=== PATIENT | male | born 1955 | race Caucasian/White ===

== ENCOUNTER 2021-09-02 14:42 | Emergency (ER) | payer BC ==
[~2021-09-02] VITALS: Ht 182 cm; Wt 124.0 kg
--- NOTE | 2021-09-02 15:50 | ED Cough/URI ---
General Chief Complaint: COVID19 Suspect/Confirmed Stated Complaint: COUGH,BODY ACHES,CABRERA, SOB Nursing Triage Note: PT CO OF COUGH, BODYACHES, CABRERA DENIES FEVERS, EAR ACHE FOR 2 WEEKS. PT TESTED - FOR COVID 2 WEEKS AGO Source: patient Exam Limitations: no limitations History of Present Illness Date Seen by Provider: Sep 02, 2021 Time Seen by Provider: 15:36 Initial Comments Patient is a 65-year-old male who presents to the emergency room with a chief complaint of cough, congestion, body aches mild headache. Onset of symptoms 2 to 3 weeks ago. Patient states he has been taking multiple gobe-eag-kkxefth medications for relief of symptoms that have been unsuccessful. He was seen 2 weeks ago and tested for COVID, was negative. He states he was COVID vaccinated in July 2021. Denies problems with bladder or bowel, diarrhea, black or bloody stools. No rashes or swelling. Cough is somewhat productive. He is also complaining of a right-sided earache. Mild sore throat. Patient is a fairly heavy smoker. Has a history of hypertension. All other review of systems reviewed and negative except as stated Timing/Duration: getting worse Severity/Quality: productive cough Prior Episodes/Possible Cause: illness exposure Modifying Factors: Improves With Albuterol Inhaler Associated Symptoms: cough, earache (right sided), fever/chills, headache, muscle aches, nasal congestion, nasal drainage, sinus infection Allergies and Home Medications Allergies Coded Allergies: iodine (Verified Allergy, Unknown, 09/02/21) Patient Home Medication List Home Medication List Reviewed: Yes Acetaminophen with Codeine (Acetaminop-Codeine 120-12 mg/5) 5 Ml Solution, 5 ML PO Q6H PRN for cough/pain Prescribed by: BAR GUERRA on 09/02/21 9537 Review of Systems Review of Systems Constitutional: see HPI EENTM: nose congestion Respiratory: cough, phlegm Cardiovascular: no symptoms reported Gastrointestinal: no symptoms reported Genitourinary: no symptoms reported Musculoskeletal: joint pain ("all over") Skin: no symptoms reported Psychiatric/Neurological: Headache (mild) All Other Systems Reviewed Negative Unless Noted: Yes Past Saaienw-Hspwwr-Wkynpc Hx Patient Social History Tobacco Use?: Yes Tobacco type used: Cigarettes Smoking Status: Current Everyday Smoker Substance use?: No Alcohol Use?: Yes Alcohol type: Hard Liquor Alcohol Frequency: Daily Pt feels they are or have been: No Immunizations Up To Date First/Initial COVID19 Vaccinat: 2020 Second COVID19 Vaccination [place]: 2020 Physical Exam Vital Signs - First Documented 09/02/21 15:09 Temp 37.0 Pulse 78 Resp 18 B/P (MAP) 173/99 (123) Pulse Ox 97 Capillary Refill : Less Than 3 Seconds Height: '" Weight: lbs. oz. kg; 37.00 BMI Method: General Appearance: WD/WN, no apparent distress Eyes: Bilateral Eye Normal Inspection, Bilateral Eye PERRL, Bilateral Eye EOMI HEENT: PERRL/EOMI, TM abnormal (R) (fluid behind right TM, no erythema), other (prominent uvula, mild pharyngeal erythema) Neck: full range of motion, supple Respiratory: no respiratory distress, no accessory muscle use, crackles (right posterior upper lung alegria, scant espiratory wheeze) Cardiovascular: regular rate, rhythm Gastrointestinal: non tender, soft Extremities: non-tender, normal inspection, no pedal edema, no calf tenderness, normal capillary refill Neurologic/Psychiatric: no motor/sensory deficits, alert, normal mood/affect, oriented x 3 Skin: normal color, warm/dry Progress/Results/Core Measures Suspected Sepsis SIRS Temperature: Pulse: 78 Respiratory Rate: 18 Blood Pressure 173 /99 Mean: 123 Results/Orders Lab Results Laboratory Tests Test 09/02/21 15:43 Range/Units Influenza Type A (RT-PCR) Not Detected Not Detecte Influenza Type B (RT-PCR) Not Detected Not Detecte SARS-CoV-2 RNA (RT-PCR) Detected H Not Detecte My Orders Orders - BAR GUERRA MD Covid 19 Inhouse Test (09/02/21 15:43) Chest 1 View, Ap/Pa Only (09/02/21 15:43) Influenza A And B By Pcr (09/02/21 15:43) Isolation Central Supply Req (09/02/21 15:43) Vital Signs/I&O 09/02/21 09/02/21 15:09 17:35 Temp 37.0 Pulse 78 70 Resp 18 18 B/P (MAP) 173/99 (123) 165/84 Pulse Ox 97 97 Capillary Refill : Less Than 3 Seconds Blood Pressure Mean: 123 Diagnostic Imaging Diagonstic Imaging: Xray Comments [facility] [place], [place] NAME: CB VANCE [facility] REC#: [id number] PT STATUS: REG ER : 1955 PHYSICIAN: BAR GUERRA MD ADMIT DATE: 09/02/21/ER Signed Date of Exam:09/02/21 CHEST 1 VIEW, AP/PA ONLY EXAMINATION: Chest, 1 view. HISTORY: Cough. COMPARISON: None available. FINDINGS: There is right base airspace opacity, consistent with pneumonia. No pleural effusion or pneumothorax. The heart size is normal. IMPRESSION: Right base airspace opacity, consistent with pneumonia. Dictated by: Dictated on workstation # [id number] Dict: 09/02/211651 Trans: 09/02/211654 [id number] Interpreted by: JUSTIN MIRANDA MD Electronically signed by: JUSTIN MIRANDA MD 09/02/211654 Departure Impression Primary Impression: Pneumonia due to COVID-19 virus Disposition: 01 HOME, SELF-CARE Condition: Stable Departure-Patient Inst. Decision time for Depature: 17:29 Referrals: NO,LOCAL PHYSICIAN (PCP/Family) Primary Care Physician Patient Instructions: COVID-19 ED Add. Discharge Instructions: Use your inhalers religiously every 4-6 hours to keep your lungs nice and open and clear. Continue to use toty-omg-tkyftzh Robitussin and Mucinex for cough and congestion. You need to get a pulse oximeter, oxygen monitor and monitor your oxygen at home. If it drops below 90% you need to go back to the emergency room or if you start to run high fever and have increasing difficulty breathing please go back to the emergency room Take Tylenol and/or ibuprofen as needed for pain. I did send a prescription to [facility] for Tylenol with codeine. This should help you sleep at night with cough. Do not take extra Tylenol with the Tylenol with codeine syrup. Follow-up with your primary care physician with a phone call. You will need to COVID quarantine for 5 days from the date of this test today and then mask strictly over the course of the following 5 days. Scripts Albuterol Sulfate (PROAIR HFA) 1 Puff Puff 2 PUFF IH Q4H, #1 EA 1 PUFF = 90 MCG Prov: BAR GUERRA MD 09/02/21 Acetaminophen with Codeine (Acetaminop-Codeine 120-12 mg/5) 5 Ml Solution 5 ML PO Q6H PRN for cough/pain for 7 Days, #60 EA Prov: BAR GUERRA MD 09/02/21 BAR GUERRA MD Sep 02, 2021 15:50
--- NOTE | 2021-09-02 16:53 | Diagnostic Imaging Report ---
EXAMINATION: Chest, 1 view. HISTORY: Cough. COMPARISON: None available. FINDINGS: There is right base airspace opacity, consistent with pneumonia. No pleural effusion or pneumothorax. The heart size is normal. IMPRESSION: Right base airspace opacity, consistent with pneumonia. Dictated by: Dictated on workstation # [id number]
[2021-09-02] MEDS ORDERED: ACET5ELI PO (17:32)
[2021-09-02 17:35] VITALS: BP 165/84
[2021-09-02] MEDS ORDERED: RT-ALBUINH IH (17:39)
== END 2021-09-02 17:35 | disposition home or self-care (01) ==
LOC: ER 14:46
DX: U07.1 COVID-19 (principal); J12.82 Pneumonia due to coronavirus disease 2019; F17.210 Nicotine dependence, cigarettes, uncomplicated
CPT/HCPCS: 71045; 87636